=== PATIENT | male | born 1940 | race Asian ===

== ENCOUNTER 2018-11-24 08:17 | Outpatient (CLI) | payer MEDICARE ==
[2018-11-24 10:36] LABS: #Eosinphils 0.3 thou/uL (0.0-0.7); #Lymphocytes 2.2 thou/uL (1.20-3.40); #Monocytes 0.6 thou/uL (0.11-0.59); #Neutrophils 3.6 thou/uL (1.40-6.50); %Basophils 0.6 % (0.0-1.0); %Eosinophils 4.4 % (0.0-10.0); %Lymphocytes 33.1 % (21.0-51.0); %Monocytes 8.8 % (0.0-10.0); Hemoglobin 14.8 g/dL (14.0-18.0); Mean Corpuscular HGB CONC 33.2 g/dL (32.0-36.0); Mean Corpuscular Hemoglobin 30.5 pg (27.0-31.0); Mean Corpuscular Volume 91.8 fL (78.0-98.0); Mean Platelet Volume 9.5 fL (7.4-10.4); Platelet Count 204 thou/uL (130-400); RBC Distribution Width 11.7 % (11.5-14.5); Red Blood Cell (RBC) Count 4.86 mill/uL (4.70-6.10); White Blood Cell (WBC) Count 6.8 thou/uL (4.8-10.8)
[2018-11-24 10:37] LABS: INR-International Normal Ratio 1.2; Prothrombin Time 14.7 SEC (12.0-14.7)
[2018-11-24 10:38] LABS: PTT 29.7 SEC (22.9-36.1)
[2018-11-24 11:03] LABS: ALT (SGPT) 20 U/L (8-55); AST (SGOT) 19 U/L (5-34); Alkaline Phosphatase 63 U/L (40-150); Anion Gap 14 mmol/L (10-20); BUN (Urea Nitrogen) 16 mg/dL (8.4-25.7); Bilirubin, Total 0.7 mg/dL (0.2-1.2); Calc. Creatinine Clearance 0 mL/min (70-130); Calcium 9.1 mg/dL (7.8-10.44); Carbon Dioxide 22 mmol/L (23-31); Cardiac Risk 4.1 (Less than 4.5); Chloride 107 mmol/L (98-107); Cholesterol 161 mg/dl (< 200 Desired); Estimated GFR-MDRD 48; Glucose 100 mg/dL (83-110); HDL Cholesterol 39 mg/dL (>60 Neg Risk); LDL Cholesterol, Calculated 89 mg/dL; Potassium 4.2 mmol/L (3.5-5.1); Sodium 139 mmol/L (136-145); Triglycerides 165 mg/dL (Less than 150)
== END 2018-11-24 08:18 | disposition home or self-care (01) ==
LOC: LABBT 08:17
PROVIDERS: ATTEND Internal Medicine Cardiovascular Disease
DX: Z01.812 Encounter for preprocedural laboratory examination (principal); R06.02 Shortness of breath
CPT/HCPCS: 80053; 80061; 85025; 85610; 85730

== ENCOUNTER 2018-11-27 08:19 | Day surgery (SDC) | payer MEDICARE ==
[2018-11-24 08:47] VITALS: BMI 24.3
[2018-11-27] MEDS ORDERED: Lidocaine 1% (PF) 30 ML VIAL ONE (10:13)
[2018-11-27] MEDS ORDERED: Heparin 10,000 UNITS/1 ML VIAL ONE (10:14)
[2018-11-27] MEDS ORDERED: Verapamil 5 MG/2 ML VIAL ONE (10:14)
[2018-11-27] MEDS ORDERED: Nitroglycerin 100MG/250ML BOT 250 ML ONE (10:14)
[2018-11-27] MEDS ORDERED: Midazolam HCl 2 mg/2 ml Vial ONE (10:14)
[2018-11-27] MEDS ORDERED: Fentanyl 100 MCG/2 ML VIAL ONE (10:14)
[2018-11-27 11:22] LABS: Site PA
[2018-11-27 11:23] LABS: Site RA
[2018-11-27] MEDS ORDERED: Iopamidol 370 76% 100 ML VIAL ONE (15:48)
== END 2018-11-27 15:56 ==
LOC: CCL 08:19
PROVIDERS: ATTEND Internal Medicine Cardiovascular Disease
PROC: 4A023N8 Measurement of Cardiac Sampling and Pressure, Bilateral, Percutaneous Approach (ICD-10-PCS; principal; 2018-11-27)
PROC: B2111ZZ Fluoroscopy of Multiple Coronary Arteries using Low Osmolar Contrast (ICD-10-PCS; 2018-11-27)
PROC: B2161ZZ Fluoroscopy of Right and Left Heart using Low Osmolar Contrast (ICD-10-PCS; 2018-11-27)
DX: R06.02 Shortness of breath (principal); Z79.82 Long term (current) use of aspirin; Z79.899 Other long term (current) drug therapy
CPT/HCPCS: 82810; 85347; 93460; 93561; 99152; 99153; C1769; J1644; J2001; J2250; J3010

== ENCOUNTER 2019-12-03 06:26 | Outpatient (CLI) | payer MEDICARE, OTHER ==
[2019-12-03 16:04] LABS: Bacteria/HPF None Seen HPF (None Seen); Bilirubin Negative (Negative); Blood, Urine Negative (Negative); Clarity Clear (Clear); Glucose, Urine (Dipstick) Normal (Negative); Ketone, Urine Trace mg/dL (Negative); Leukocyte Negative Leu/uL (Negative); Nitrite Negative (Negative); Protein, Urine (Dipstick) 30 mg/dL (Neg-Trace); Specific Gravity, Urine 1.032 (1.002-1.036); Squamous Epithelial None Seen HPF (0-3); Urobilinogen Normal mg/dL (Less than 2); WBC/HPF 0-3 HPF (0-3); pH, Urine 5.5 (5.0-9.0)
[2019-12-03 16:13] LABS: Calcium Oxalate Crystals 2+ HPF (None Seen)
[2019-12-03 16:17] LABS: #Eosinphils 0.2 thou/uL (0.0-0.7); #Lymphocytes 2.6 thou/uL (1.20-3.40); #Monocytes 0.7 thou/uL (0.11-0.59); #Neutrophils 3.5 thou/uL (1.40-6.50); %Basophils 0.5 % (0.0-1.0); %Eosinophils 2.6 % (0.0-10.0); %Lymphocytes 36.6 % (21.0-51.0); %Monocytes 9.8 % (0.0-10.0); %Neutrophils 50.5 % (42.0-75.0); Hemoglobin 15.7 g/dL (14.0-18.0); Mean Corpuscular HGB CONC 33.5 g/dL (32.0-36.0); Mean Corpuscular Volume 92.5 fL (78.0-98.0); Mean Platelet Volume 9.8 fL (7.4-10.4); Platelet Count 202 thou/uL (130-400); RBC Distribution Width 11.6 % (11.5-14.5); Red Blood Cell (RBC) Count 5.07 mill/uL (4.70-6.10)
[2019-12-03 16:23] LABS: INR-International Normal Ratio 1.1; PTT 28.8 sec (22.9-36.1); Prothrombin Time 14.6 sec (12.0-14.7)
[2019-12-03 16:24] LABS: Anion Gap 13 mmol/L (10-20); BUN (Urea Nitrogen) 20 mg/dL (8.4-25.7); Calc. Creatinine Clearance 0 mL/min (70-130); Calcium 9.6 mg/dL (7.8-10.44); Carbon Dioxide 23 mmol/L (23-31); Chloride 107 mmol/L (98-107); Estimated GFR-MDRD 47; Glucose 135 mg/dL (83-110); Potassium 4.4 mmol/L (3.5-5.1); Sodium 139 mmol/L (136-145)
[2019-12-04 12:25] LABS: SARS-CoV-2 MS2 Positive; SARS-CoV-2 N Gene Negative; SARS-CoV-2 S Gene Negative; SARS-CoV-2 orf1ab Negative
== END 2019-12-03 06:27 | disposition home or self-care (01) ==
LOC: LABBT 06:26
PROVIDERS: ATTEND Urology
DX: Z01.818 Encounter for other preprocedural examination (principal); Z11.59 Encounter for screening for other viral diseases; Z12.5 Encounter for screening for malignant neoplasm of prostate; N40.1 Benign prostatic hyperplasia with lower urinary tract symptoms; R35.0 Frequency of micturition; R80.9 Proteinuria, unspecified; N28.9 Disorder of kidney and ureter, unspecified; Z87.898 Personal history of other specified conditions; Z98.890 Other specified postprocedural states
CPT/HCPCS: 80048; 81001; 85025; 85610; 85730; 87086; 93005; U0003; 87635; 93010

== ENCOUNTER 2019-12-08 05:59 | Day surgery (SDC) | payer MEDICARE ==
[2019-12-01 10:22] VITALS: BMI 22.8
[2019-12-08] MEDS ORDERED: Levofloxacin 500 mg/D5W 100 ml Premix Bag ONE (06:33)
[2019-12-08] MEDS ORDERED: Propofol 500 MG/50 ML VIAL ONE (06:53)
[2019-12-08] MEDS ORDERED: Famotidine/PF 20 mg/2ml Vial ONE (06:53)
[2019-12-08] MEDS ORDERED: Fentanyl 100 MCG/2 ML VIAL ONE (06:53)
[2019-12-08] MEDS ORDERED: Midazolam HCl 2 mg/2 ml Vial ONE (06:53)
[2019-12-08] MEDS ORDERED: Ondansetron PF 4 MG/2 ML Vial ONE ×2 (08:11→10:56)
[2019-12-08] MEDS ORDERED: Phenazopyridine HCl 97.5 MG TABLET ONE (08:15)
--- NOTE | 2019-12-08 10:39 | OP ---
DATE OF PROCEDURE: 12/08/2019 PREOPERATIVE DIAGNOSIS: Mr. Strong is a 79-year-old male with history of benign prostatic hyperplasia on dual medical therapy, alfuzosin and finasteride with IPSS of score of 9. POSTOPERATIVE DIAGNOSIS: Mr. Strong is a 79-year-old male with history of benign prostatic hyperplasia on dual medical therapy, alfuzosin and finasteride with IPSS of score of 9. PROCEDURES PERFORMED: Cystoscopy, UroLift implant x5.. ANESTHESIA: TIVA. COMPLICATIONS: None. DISPOSITION: To recovery room in stable condition. DRAINS: None. INDICATIONS FOR PROCEDURE AND HISTORY: Mr. Strong is a pleasant 79-year-old male with history of BPH and has been on alfuzosin and finasteride for numerous years. His son is a former patient of mine, and presented with his father with desire to proceed with UroLift. He desires to discontinue his BPH medications and underwent appropriate workup demonstrating that he is a good candidate for UroLift. Risks and complications of the procedure, has been discussed with him in detail including , but not limited to, bleeding, pain, infection, injury to adjacent organs, chronic pain, possible secondary procedure due to migrated implant, urolithiasis, incrustation , chronic pain. All questions answered to his satisfaction and he desired to proceed without reservation. DESCRIPTION OF PROCEDURE: After an informed consent was signed, the patient was taken to the operating room, placed in the dorsal lithotomy position with the genital area prepped and draped in the usual surgical sterile fashion. A 21- [place] cystoscope was utilized for cystoscopy, which demonstrated no evidence of urethral stricture. Upon entering the prostatic urethra, as previously noted, it was bilobar hyperplasia of the prostate, which is moderately obstructing. He does have an asymmetric lobe on the right side at the level of the apex. Bladder was entered , which demonstrated trabeculation consistent with chronic outlet obstruction. UOs are well away from the bladder neck. At this time, we transitioned to the UroLift implant cystoscopy, implant was then placed first at the left proximal prostatic urethra. Care was taken to stay at 1.5 to 2 cm proximal to the bladder neck. As he has a sharp prostate, I did have the first implant near the level of the veru, first implant deployed demonstrating good reduction. Subsequently, we placed total of 2 implants on the left lateral lobe, followed by 2 implants on the right lateral lobe. Due to an asymmetric enlargement component and near the apex, I did stack the 5th implant at the right lateral distal prostatic urethra, just proximal to the veru. At the end of the procedure, he had a wide bladder neck, good anterior channel was noted. He tolerated the procedure well with minimal bleeding. We will monitor his voiding trial in recovery. Anticipate the patient will be discharged without an indwelling Corea catheter. He is discharged with Azo over the counter p.r.n., ciprofloxacin for 3 days. He will see me tomorrow for a peak flow PVR check. Job ID: [id number] [id number]
[2019-12-08] MEDS ORDERED: Lidocaine 1% PF 5 ML VIAL ONE (10:56)
== END 2019-12-08 10:55 | disposition home or self-care (01) ==
LOC: SDC 05:59
PROVIDERS: ATTEND Urology
PROC: 0T7D8DZ Dilation of Urethra with Intraluminal Device, Via Natural or Artificial Opening Endoscopic (ICD-10-PCS; principal; 2019-12-08)
PROC: 0T7D8DZ Dilation of Urethra with Intraluminal Device, Via Natural or Artificial Opening Endoscopic (ICD-10-PCS; 2019-12-08)
DX: N40.1 Benign prostatic hyperplasia with lower urinary tract symptoms (principal); R35.0 Frequency of micturition; N28.9 Disorder of kidney and ureter, unspecified; Z79.899 Other long term (current) drug therapy
CPT/HCPCS: C1889; J1956; J2250; J2405; J2704; J3010; S0028

== ENCOUNTER 2021-06-13 08:23 | Outpatient (CLI) | payer MEDICARE | END 2021-06-13 08:24 | disposition home or self-care (01) | LOC: TBSIIMAG 08:23 | PROVIDERS: ATTEND Urology | DX: R97.20 Elevated prostate specific antigen [PSA] (principal) | CPT/HCPCS: 72197 ==